=== PATIENT | male | born 1995 | race Two or more races ===

== ENCOUNTER 2024-06-02 15:35 | Emergency (ER) | payer MEDICAID ==
[~2024-06-02] VITALS: Ht 172.7 cm; Wt 81.6 kg
[2024-06-02 15:40] VITALS: O2SAT 99
[2024-06-02] MEDS ORDERED: DIPH1TAB PO (16:13)
[2024-06-02] MEDS ORDERED: DIPHENOXYLATE HCL/ATROP SULF TABLET PO ONE (16:30)
== END 2024-06-02 16:23 | disposition home or self-care (01) ==
LOC: ER 15:43
DX: R19.7 Diarrhea, unspecified (principal)
CPT/HCPCS: A4606; A4663